=== PATIENT | female | born 1950 | race Hispanic/Latino ===

== ENCOUNTER 2017-09-19 23:00 | Emergency (ER) | payer OTHER ==
[2017-09-19 23:30] VITALS: BP 113/49; TEMP 98.5; O2SAT 100
--- NOTE | 2017-09-20 00:15 | ED PDOC ---
HPI: General Adult Time Seen by Provider: 09/19/17 23:46 Chief Complaint (Nursing): Weakness/Neurological Deficit Chief Complaint (Provider): weakness, dizziness History Per: Patient, Family (son-in-law) History/Exam Limitations: no limitations Onset/Duration Of Symptoms: Hrs Current Symptoms Are (Timing): Still Present Additional History Per: Patient, Family Additional Complaint(s): 66 y/o female, visiting from [place], history of atrial flutter presents feeling generally weak with dizziness x 4 hours. Patient takes an anti-arrythmic medication prescribed by her business development engineer in [place], states yesterday she felt her rhythm to be abnormal, and was advised by her business development engineer to take an extra dose of her medication, which she did in the morning. Patient notes her heart rate to be in the 30's tonight while checking her blood pressure machine after she started feeling her symptoms. Denies fever, headache, vision changes, extremity numbness/weakness, chest pain, shortness of breath, nausea/vomiting. Against Medical Advice - AMA Patient Left Against Medical Advice: The patient declines admission to the hospital and wishes to leave the Emergency Department. This action is against my medical advice. This decision was made with informed refusal. The patient was told that admission to the hospital is necessary. Explanation of the reasons why were discussed. The risks of leaving were explained to the patient and include, but are not limited to, worsening of known or currently unknown conditions, permanent disability and from undiagnosed or untreated conditions. The patient has the capacity to make this informed decision and understands my explanation of the current medical problem and risks of leaving. The patient voluntarily accepts these risks and signed an AMA form documenting our conversation. The patient was given the opportunity to ask questions and reconsider. The patient was encouraged to return to the Emergency Department at any time for further care. Past Medical History Reviewed: Historical Data, Nursing Documentation, Vital Signs Vital Signs: Last Vital Signs Temp 98.5 F 09/19/17 23:27 Pulse 44 L 09/19/17 23:27 Resp 16 09/19/17 23:27 BP 113/49 L 09/19/17 23:27 Pulse Ox 100 09/20/17 00:16 - Medical History PMH: HTN, Hypothyroidism Other PMH: atrial flutter - Surgical History Surgical History: No Surg Hx - Family History Family History: States: Unknown Family Hx - Immunization History Hx Tetanus Toxoid Vaccination: No Hx Influenza Vaccination: No Hx Pneumococcal Vaccination: No - Home Medications Home Medications: Ambulatory Orders Medication Instructions Recorded Bisoprolol [Zebeta] 1 tab PO DAILY 01/15/16 Levothyroxine Sodium [Synthroid] 50 mcg PO DAILY 01/15/16 Rivaroxaban [Xarelto] 20 mg PO DAILY 01/15/16 amLODIPine [Norvasc] 2.5 mg PO DAILY 01/15/16 - Allergies Allergies/Adverse Reactions: Allergies Allergy/AdvReac Type Severity Reaction Status Date / Time No Known Allergies Allergy Verified 09/19/17 23:27 Review of Systems ROS Statement: Except As Marked, All Systems Reviewed And Found Negative Constitutional: Positive for: Weakness Neurological: Positive for: Dizziness Physical Exam - Reviewed Nursing Documentation Reviewed: Yes Vital Signs Reviewed: Yes - Physical Exam Appears: Positive for: Well, Non-toxic, No Acute Distress Head Exam: Positive for: ATRAUMATIC, NORMAL INSPECTION, NORMOCEPHALIC Skin: Positive for: Normal Color Eye Exam: Positive for: Normal appearance, EOMI, PERRL ENT: Positive for: Normal ENT Inspection Cardiovascular/Chest: Positive for: Regular Rate, Rhythm Respiratory: Positive for: Normal Breath Sounds Gastrointestinal/Abdominal: Positive for: Normal Exam Back: Positive for: Normal Inspection Extremity: Positive for: Normal ROM Neurologic/Psych: Positive for: Alert, Oriented. 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 Advised patient/son-in-law that she will need to sign out against medical advice , and risks of oding so. Patient ok with son-in-law translating AMA form. Advised to return to ED for returning/worsening symptoms. Disposition - Clinical Impression Clinical Impression: Left against medical advice, History of atrial flutter, Dizziness, Weakness - Patient ED Disposition Is Patient to be Admitted: No - Disposition Disposition Time: 01:10 Condition: STABLE Instructions: Against Medical Advice (ED) Forms: [employer] (Citizen Of [place])
[2017-09-20 02:37] VITALS: PULSE 60; RESP 17
--- NOTE | 2017-09-20 09:03 | CARD ---
APPROVED REPORT EKG Measurement Heart [id number] <Conclusion> Normal sinus rhythm Possible Left atrial enlargement Borderline ECG
== END 2017-09-20 01:12 | disposition left against medical advice (07) ==
LOC: H.ER 23:00
DX: R53.1 Weakness (principal); I48.92 Unspecified atrial flutter; I10 Essential (primary) hypertension; E03.9 Hypothyroidism, unspecified